=== PATIENT | female | born 1940 | race Two or more races ===

== ENCOUNTER 2019-12-12 12:36 | Emergency (ER) | payer MEDICARE, MEDICAID ==
[~2019-12-12] VITALS: Ht 167.6 cm; Wt 74.4 kg
[2019-12-12] MEDS ORDERED: HYDROcodone-ACET 5/325MG TAB PO ONE (14:30)
[2019-12-12 14:56] VITALS: BP 132/80
== END 2019-12-12 15:13 | disposition home or self-care (01) ==
LOC: ER 12:36
DX: M19.011 Primary osteoarthritis, right shoulder (principal); M50.11 Cervical disc disorder with radiculopathy, high cervical region; I10 Essential (primary) hypertension
CPT/HCPCS: 72040; 73030